=== PATIENT | male | born 1955 | race Caucasian/White ===

== ENCOUNTER 2023-11-03 12:15 | Outpatient (CLI) | payer MEDICARE, OTHER ==
--- NOTE | 2023-11-03 21:44 | XRAY Report ---
PROCEDURE: Chest 2 View X-Ray INDICATIONS: EXPOSURE TO RADON TECHNIQUE: 2 views of the chest were acquired. COMPARISON: None. FINDINGS: Surgical changes and devices: None. Lungs and pleura: No pleural effusions or pneumothorax. There is no focal infiltrate. Possible small calcified granuloma in right lower lung field is seen. Mediastinum: Mediastinal contours appear normal. Heart size is normal. Bones and chest wall: No suspicious bony lesions. Overlying soft tissues appear unremarkable. IMPRESSION: No acute cardiopulmonary process. Reviewed by: Faraz Curry MD on 11/03/2023 9:43 PM PST Approved by: Faraz Curry MD on 11/03/2023 9:43 PM PST Station ID: [id number]
== END 2023-11-03 12:30 | disposition home or self-care (01) ==
LOC: DI.N 12:15
PROVIDERS: ATTEND Physician Assistant Medical
DX: R05.9 Cough, unspecified (principal); Z77.123 Contact with and (suspected) exposure to radon and other naturally occurring radiation

== ENCOUNTER 2023-11-23 09:58 | Outpatient (CLI) | payer OTHER ==
--- NOTE | 2023-11-23 13:57 | CT Report ---
PROCEDURE: Chest WO INDICATIONS: RADON EXPOSURE TECHNIQUE: Noncontrast 1mm axial images acquired from the pulmonary apex to the posterior costophrenic angles in the supine end-inspiration, supine end-expiration, and prone end-inspiration positions. Axial 5 mm soft tissue kernel reconstructions were performed as well as 8 mm axial MIP and coronal and sagittal 5 mm reformations. For radiation dose reduction, the following was used: automated exposure control , adjustment of mA and/or kV according to patient size. COMPARISON: Chest radiograph dated 11/03/2023 FINDINGS: Image quality: Diagnostic. Lungs: Bronchiectasis: Absent. Reticulation: Absent Pattern of distrubution: Not applicable. Honeycombing: None Air trapping: Absent. Ground glass: Absent. Suspicious nodules: Absent. Incidental note of benign calcified peripheral pulmonary nodule measuring 6 mm. This correlates with radiographic findings. Pleura: No pleural effusions or pneumothorax. Mediastinum: Heart size is normal. No pericardial effusion. No large vessel abnormality. No mediastin al adenopathy by size criteria. Chest wall and lower neck: Thyroid is unremarkable. No axillary or supraclavicular adenopathy by size . There is a small fat-containing right-sided Bochdalek hernia with adjacent compressive atelectasis. Bones: No aggressive osseous abnormality. No acute compression fracture. Upper Abdomen: Bilateral renal hypodensities likely representing multiple parapelvic cysts versus hyd ronephrosis. No perinephric stranding. This is incompletely visualized. There are also numerous hepat ic hypodensities favored to represent cysts or hemangiomas.. IMPRESSION: CT chest without acute cardiopulmonary abnormalities. No suspicious pulmonary nodules or mass lesions . No mediastinal or hilar adenopathy. Incompletely evaluated bilateral renal hypodensities which are favored to represent multiple peripelv ic cysts versus hydronephrosis. Additionally, multiple scattered hepatic hypodensities are favored to represent cysts. Consider further evaluation with ultrasound of the abdomen for further characteriza tion. Reviewed by: Álvaro Velasquez MD on 11/23/2023 1:56 PM PST Approved by: Álvaro Velasquez MD on 11/23/2023 1:56 PM PST Station ID: [id number]
== END 2023-11-23 09:59 | disposition home or self-care (01) ==
LOC: DI 09:58
PROVIDERS: ATTEND Physician Assistant Medical
DX: R05.3 Chronic cough (principal); X39.01XA Exposure to radon, initial encounter